=== PATIENT | female | born 1950 | race Asian ===

== ENCOUNTER 2018-08-30 15:09 | Inpatient (IN) | payer MEDICARE, OTHER ==
[~2018-08-30] VITALS: Ht 154.9 cm; Wt 46.7 kg
--- NOTE | 2018-08-30 16:35 | NUR ---
NURSE NOTES: Patient arraived the unit ambulatory accompanied by her daughter. Vitals taken upon arrival. Pictures taken and down loaded on patient's file for right foot ulcer. side rial up x2, breaks engaged and bed at lowest position. call light within reach. will keep monitoring.
[2018-08-30 17:02] VITALS: BP 145/70
--- NOTE | 2018-08-30 17:15 | NUR ---
NURSE NOTES: Dr Wise is notified patient had arrived on the unit and asked for the admitting orders. Per Dr Wise he will call back with the orders. Primary Rn notified
[2018-08-30] MEDS ORDERED: HYDROcodone/Acetamin 5/325 tab ORAL PRN (17:45)
[2018-08-30] MEDS ORDERED: Acetaminophen 500mg (ES) tab ORAL PRN (17:45)
--- NOTE | 2018-08-30 20:20 | NUR ---
NURSE NOTES: Spoke to Dr. Wise and he called the pt's daughter. He recommends that patient to stay here and may transfer to [facility] tomorrow. Patient's another daughter in the room and they want to leave. Patient signed AMA paper and left with the daughter.
--- NOTE | 2018-08-30 20:20 | NUR ---
NURSE NOTES: Cleaned wound with NS. Dressings applied without optifoam and kerlix.
[2018-08-30] MEDS ORDERED: NovoLOG Insulin Flexpen SUBQ SCH (21:00)
[2018-08-30] MEDS ORDERED: Heparin 5000 units/ml inj SUBQ SCH (21:00)
--- NOTE | 2018-08-31 18:30 | Consultation ---
DATE OF CONSULTATION: 08/30/2018 VASCULAR SURGERY CONSULTATION: CONSULTING PHYSICIAN: Alfredo Machuca M.D. REFERRING PHYSICIAN: Elizabeth Wise M.D. REASON FOR CONSULTATION: Right foot ulceration. HISTORY OF PRESENT ILLNESS: This is a 67-year-old female, who is originally from [place] presented with right lateral foot wound and infection. The patient has a history of diabetes mellitus, hypertension. Denies any history of smoking and has been having right foot ulceration for several weeks, which is not healing. Vascular Surgery is consulted for further evaluation. PAST MEDICAL HISTORY: History of insulin-dependent diabetes mellitus, hypertension, arthritis. MEDICATIONS: See attached MAR. ALLERGIES: No known drug allergies. SOCIAL HISTORY: No history of smoking, drugs, or alcohol abuse. FAMILY HISTORY: Unremarkable. SYSTEM REVIEW: CARDIOVASCULAR: No history of chest pain or palpitation. PULMONARY: No cough or hemoptysis. GASTROINTESTINAL: No history of abdominal pain, constipation, or diarrhea. GENITOURINARY: No urinary symptoms, frequency, or hematuria. NEUROLOGIC: No history of strokes or seizures. PHYSICAL EXAMINATION: GENERAL: The patient is afebrile at 97, heart rate 78, blood pressure 150/60, respirations 16. VASCULAR: The patient has palpable radial pulse. No evidence of carotid bruit. LUNGS: Clear to auscultation. HEART: Regular rate and rhythm. ABDOMEN: Soft, nontender. EXTREMITIES: She has palpable femoral pulses. Absent popliteal and pedal pulses bilaterally. She has a lateral right foot ulceration with mild erythema. IMPRESSION: 1. 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 2. Tibial arterial occlusive disease. 3. History of diabetes mellitus. 4. Hypertension. PLAN AND RECOMMENDATIONS: 1. Medical optimization in progress. 2. Antibiotics per ID service. 3. We will complete the noninvasive duplex imaging. 4. MRI of the right foot to rule out infection. 5. The patient will strongly benefit from selective right leg angiography to assess for revascularization and improve with wound healing. 6. Podiatry followup. The above was discussed at length with the patient. Alfredo Machuca M.D. DR: CADE JOB#: [id number] CC:
--- NOTE | 2018-09-01 13:04 | Discharge Summary ---
Discharge Summary Discharge Summary _ DATE OF ADMISSION: 08/30/2018 DATE OF DISCHARGE: 08/30/2018 Patient left AGAINST MEDICAL ADVICE REASON FOR ADMISSION: 67 years old female with past medical history of insulin-dependent diabetes mellitus, hypertension, presented with right lateral foot wound. Patient reported having right foot ulceration for several weeks , which was not healing. Patient was admitted to the hospital for further management. CONSULTANTS: Vascular surgery Dr. Machuca [facility] COURSE: Patient admitted to medical surgical floor. Vascular surgeon seen and evaluated patient. MRI of the right foot ordered. Noninvasive duplex imaging was ordered, including arterial and venous duplex and carotid duplex. Per vascular surgeon, patient would strongly benefit from selective right leg angiography to assess for revascularization and improve with the wound healing. Surgeon recommended podiatry evaluation. Sliding scale of short acting insulin was ordered for blood sugar management. Hemoglobin A1c was ordered. DVT prophylaxis was on board. Pain management was addressed. ID consult for antibiotic management was pending. Patient left AGAINST MEDICAL ADVICE. FINAL DIAGNOSES: Diabetic right lateral foot wound ulcer and necrosis Tibial arterial occlusive disease Diabetes mellitus Hypertension I have been assigned to dictate discharge summary for this account. I was not involved in the patient's management. Yeni Davison NP Sep 01, 2018 13:04
== END 2018-08-30 22:25 | disposition left against medical advice (07) | DRG 300 ==
LOC: 4E 16:19
DX: E11.52 Type 2 diabetes mellitus with diabetic peripheral angiopathy with gangrene (principal); I96 Gangrene, not elsewhere classified; E11.621 Type 2 diabetes mellitus with foot ulcer; L97.519 Non-pressure chronic ulcer of other part of right foot with unspecified severity; I10 Essential (primary) hypertension; Z79.4 Long term (current) use of insulin; M19.90 Unspecified osteoarthritis, unspecified site; I77.1 Stricture of artery
CPT/HCPCS: 82962; J1815